=== PATIENT | male | born 1990 | race Caucasian/White ===

== ENCOUNTER 2023-07-21 14:03 | Emergency (ER) | payer MEDICARE ==
[2023-07-21] MEDS ORDERED: Piperacillin/Tazobactam 4.5 GM VIAL ONE (16:25)
[2023-07-21 16:48] LABS: Hematocrit 36.4 % (42.0-52.0); Mean Corpuscular Hemoglobin 28.3 pg (27.0-31.0); Mean Corpuscular Volume 85.8 fl (78.0-98.0); Mean Platelet Volume 8.6 fL (7.4-10.4); Platelet Count 345 10x3/uL (130-400); RBC Distribution Width 17.3 % (11.5-14.5); Red Blood Cell (RBC) Count 4.24 mill/uL (4.70-6.10); White Blood Cell (WBC) Count 49.3 10x3/uL (4.8-10.8)
[2023-07-21 16:49] LABS: Delete Auto Diff?? YES; Manual Diff?? YES
[2023-07-21 17:12] LABS: ALT (SGPT) 11 U/L (8-55); AST (SGOT) 12 U/L (5-34); Albumin 2.9 g/dL (3.5-5.0); Alkaline Phosphatase 118 U/L (40-110); Anion Gap 10 mmol/L (10-20); BUN (Urea Nitrogen) 17 mg/dL (8.9-20.6); Bilirubin, Total 0.4 mg/dL (0.2-1.2); Calc. Creatinine Clearance 0 mL/min (70-130); Calcium 8.9 mg/dL (7.8-10.44); Carbon Dioxide 30 mmol/L (22-29); Chloride 92 mmol/L (98-107); Estimated GFR 126; Globulin 3.8 g/dL (2.4-3.5); Glucose 88 mg/dL (70-105); Potassium 4.4 mmol/L (3.5-5.1); Protein, Total 6.7 g/dL (6.0-8.3); Sodium 128 mmol/L (136-145)
[2023-07-21 17:15] LABS: Anisocytosis SLIGHT = 6-15 cells HPF (0-5); Band 31 % (5-11); CellaVision Operator ID LAB.MJL; Lymphocytes 1 % (21-51); Metamyelocyte 2 % (0-0); Monocytes 1 % (0-10); Neutrophil 65 % (42-75); Platelet Adequacy Comment Platelets Normal; Polychromasia MODERATE = 3-4 cells HPF (0-2); Reactive Lymphocytes 1 % (0-10); Total Cell Count 121
[2023-07-21] MEDS ORDERED: LORazepam 2 MG/ML SYR.(CARPUJECT) ONE (18:52)
== END 2023-07-21 23:35 | disposition short-term general hospital (02) ==
LOC: ERS 14:03
DX: R18.8 Other ascites (principal); K66.8 Other specified disorders of peritoneum; D64.9 Anemia, unspecified; G10 Huntington's disease; Z93.1 Gastrostomy status
CPT/HCPCS: 74176; 80053 ×2; 83605; 85025 ×2; 87040; J2060; 96361; 96365; 96375; J2543

== ENCOUNTER 2023-09-06 17:15 | Emergency (ER) | payer MEDICARE ==
[2023-09-06 18:23] LABS: #Eosinphils 0.8 thou/uL (0.0-0.7); #Neutrophils 5.2 thou/uL (1.40-6.50); %Basophils 0.4 % (0.0-1.0); %Eosinophils 8.3 % (0.0-10.0); %Lymphocytes 22.7 % (21.0-51.0); %Monocytes 10.8 % (0.0-10.0); %Neutrophils 56.5 % (42.0-75.0); Hematocrit 29.8 % (42.0-52.0); Hemoglobin 9.2 g/dL (14.0-18.0); Mean Corpuscular HGB CONC 30.9 g/dL (32.0-36.0); Mean Corpuscular Hemoglobin 28.8 pg (27.0-31.0); Mean Corpuscular Volume 93.4 fl (78.0-98.0); Mean Platelet Volume 9.2 fL (7.4-10.4); Platelet Count 330 10x3/uL (130-400); RBC Distribution Width 14.8 % (11.5-14.5); Red Blood Cell (RBC) Count 3.19 mill/uL (4.70-6.10); White Blood Cell (WBC) Count 9.2 10x3/uL (4.8-10.8)
[2023-09-06 18:48] LABS: ALT (SGPT) 25 U/L (8-55); AST (SGOT) 19 U/L (5-34); Albumin 3.3 g/dL (3.5-5.0); Alkaline Phosphatase 175 U/L (40-110); Anion Gap 13 mmol/L (10-20); BUN (Urea Nitrogen) 13 mg/dL (8.9-20.6); Bilirubin, Total Less than 0.2 mg/dL (0.2-1.2); Calc. Creatinine Clearance 0 mL/min (70-130); Calcium 8.7 mg/dL (7.8-10.44); Carbon Dioxide 26 mmol/L (22-29); Chloride 102 mmol/L (98-107); Estimated GFR 132; Globulin 3.4 g/dL (2.4-3.5); Glucose 91 mg/dL (70-105); Potassium 4.4 mmol/L (3.5-5.1); Protein, Total 6.7 g/dL (6.0-8.3); Sodium 137 mmol/L (136-145)
[2023-09-06] MEDS ORDERED: Lidocaine 1% PF 5 ML VIAL ONE (20:19)
== END 2023-09-06 21:11 ==
LOC: ERS 17:15
DX: Z43.1 Encounter for attention to gastrostomy (principal)
CPT/HCPCS: 36415; 74177; 80053; 85025

== ENCOUNTER 2023-11-14 20:27 | Emergency (ER) | payer MEDICARE, MEDICAID | END 2023-11-14 23:13 | disposition home or self-care (01) | LOC: ERS 20:27 | DX: Z43.1 Encounter for attention to gastrostomy (principal) | CPT/HCPCS: 74018 ==

== ENCOUNTER 2024-04-07 12:38 | Outpatient (CLI) | payer MEDICARE, MEDICAID ==
[2024-04-07] MEDS ORDERED: Sterile Water 0 ML ONE (12:49)
[2024-04-07] MEDS ORDERED: MD-Gastroview 120 ML BOT ONE (12:50)
[2024-04-07] MEDS ORDERED: Lidocaine 2% 6 ML (Jelly) SYR ONE (12:50)
[2024-04-07] MEDS ORDERED: Sodium Chloride 0.9% 500 ML ONE (12:56)
== END 2024-04-07 12:39 | disposition home or self-care (01) ==
LOC: SPEC 12:38
PROVIDERS: ATTEND Family Medicine
DX: T85.528A Displacement of other gastrointestinal prosthetic devices, implants and grafts, initial encounter (principal)
CPT/HCPCS: 49451; C1769; J7030; Q9963

== ENCOUNTER 2024-04-08 04:31 | Inpatient (IN) | payer MEDICARE, MEDICAID ==
[2024-04-08] MEDS ORDERED: Etomidate 40 MG (20 mL) VIAL ONE (04:38)
[2024-04-08] MEDS ORDERED: Rocuronium Bromide 10 MG/ML (10ML VIAL) ONE (04:38)
[2024-04-08 04:59] LABS: #Basophils 0.08 10x3/uL (0.0-0.2); #Eosinphils Less than 0.03 10x3/uL (0.0-0.7); %Basophils 0.5 % (0.0-1.0); %Eosinophils 0.1 % (0.0-10.0); %Lymphocytes 11.1 % (21.0-51.0); %Monocytes 6.5 % (0.0-10.0); %Neutrophils 81.3 % (42.0-75.0); Hematocrit 49.2 % (42.0-52.0); Hemoglobin 16.6 g/dL (14.0-18.0); Mean Corpuscular HGB CONC 33.7 g/dL (32.0-36.0); Mean Corpuscular Hemoglobin 29.2 pg (27.0-31.0); Mean Corpuscular Volume 86.6 fL (78.0-98.0); Mean Platelet Volume 11.2 fL (7.4-10.4); Platelet Count 278 10x3/uL (130-400); RBC Distribution Width 13.1 % (11.5-14.5); Red Blood Cell (RBC) Count 5.68 mill/uL (4.70-6.10)
[2024-04-08 05:06] LABS: Actual Bicarbonate (HCO3a) 25.6 mEq/L (22-28); Analyzer IN Cardio ER; Base Excess (BEa) 0.4 mEq/L (-2.0 to +3.0); CO2 Tension 43.4 mmHg (35.0-45.0); Calcium, Ionized (arterial) 1.13 mmol/L (1.12-1.30); Carboxyhemoglobin (COHb) 0.3 gm% (0.0-3.0); Hematocrit-ABG 44 % (42.0-52.0); Hemoglobin (Hb) 14.8 g/dL (14.0-18.0); O2 Tension (PaO2), arterial 351.8 mmHg (80.0-100.0); pH, Arterial 7.389 (7.35-7.45)
[2024-04-08 05:14] LABS: Puncture Site RBA
[2024-04-08] MEDS ORDERED: fentaNYL 50 mcg/mL 1 mL Vial ONE (05:18)
[2024-04-08 05:31] LABS: Bilirubin Negative (Negative); CAUTI Indications for Culture Fever or rigors; Clarity Turbid (Clear); Glucose, Urine (Dipstick) Normal (Negative); Ketone, Urine Trace mg/dL (Negative); Leukocyte Negative Leu/uL (Negative); Nitrite Negative (Negative); Protein, Urine (Dipstick) 100 mg/dL (Neg-Trace); Specific Gravity, Urine 1.042 (1.002-1.036); Squamous Epithelial None Seen HPF (0-3); Urobilinogen 3 mg/dL (Less than 2); pH, Urine 5.5 (5.0-9.0)
[2024-04-08 05:33] LABS: Bacteria/HPF Rare-Few HPF (None Seen); Blood, Urine Trace (Negative)
[2024-04-08 05:35] LABS: Urine Culture Reflex No No
[2024-04-08] MEDS ORDERED: Acetaminophen 500 MG TAB ONE (05:37)
[2024-04-08] MEDS ORDERED: Cefepime 2 GM VIAL ONE (05:37)
[2024-04-08] MEDS ORDERED: Sodium Chloride 0.9% 100 ML ONE (05:37)
[2024-04-08] MEDS ORDERED: Propofol 1,000 MG/100 ML VIAL IV ONE (05:43)
[2024-04-08 05:55] LABS: ALT (SGPT) 104 U/L (8-55); AST (SGOT) 67 U/L (5-34); Albumin 3.9 g/dL (3.5-5.0); Alkaline Phosphatase 219 U/L (40-110); Anion Gap 17 mmol/L (10-20); BUN (Urea Nitrogen) 39 mg/dL (8.9-20.6); Bilirubin, Total 0.4 mg/dL (0.2-1.2); Calc. Creatinine Clearance 0 mL/min (70-130); Calcium 9.9 mg/dL (7.8-10.44); Carbon Dioxide 27 mmol/L (22-29); Chloride 109 mmol/L (98-107); Estimated GFR 97; Glucose 171 mg/dL (70-105); Potassium 3.8 mmol/L (3.5-5.1); Protein, Total 8.9 g/dL (6.0-8.3); Sodium 149 mmol/L (136-145)
[2024-04-08] MEDS ORDERED: LORazepam 2 MG/ML SYR.(CARPUJECT) ONE (05:58)
[2024-04-08] MEDS ORDERED: LevoFLOXacin 750 mg/D5W 150 ml Premix Bag ONE (06:15)
[2024-04-08] MEDS ORDERED: Dextrose 50% Abboject 50 ML SYRINGE SLOW IVP PRN (06:17)
[2024-04-08] MEDS ORDERED: Dextrose 5% in Water 1,000 ML IV PRN (06:17)
[2024-04-08] MEDS ORDERED: Glucagon 1 MG/ML KIT IM PRN (06:17)
[2024-04-08] MEDS ORDERED: Propofol BOLUS 1,000 MG/100 ML VIAL IV PRN (06:30)
[2024-04-08] MEDS ORDERED: Morphine 2 MG/ML VIAL SLOW IVP PRN (06:30)
[2024-04-08] MEDS ORDERED: DISCONTINUE PREVIOUS NARCOTIC PAIN MEDICATIONS AND BENZODIAZEPINES FS SCH (06:30)
[2024-04-08] MEDS ORDERED: Fentanyl BOLUS 250 ML IVPB PRN (06:30)
[2024-04-08 07:11] LABS: Influenza A by NAA Not Detected (NotDetected); Influenza B by NAA Not Detected (NotDetected); SARS-CoV-2 NAA Rapid Test Not Detected (NotDetected)
[2024-04-08] MEDS: Lactated Ringer's 1,000 ML IV SCH (08:55)
[2024-04-08] MEDS: Ventilator Sedation Protocol 1 EACH FS ONE (08:55)
[2024-04-08] MEDS: Electrolyte Replacement Protocol 1 EACH FS ONE (08:55)
[2024-04-08] MEDS: Vancomycin (BATCH) 1.75 GM in Premix 1 BAG IVPB SCH (08:55)
[2024-04-08 08:56] VITALS: BMI 22.4
[2024-04-08] MEDS: Piperacillin/Tazobactam 3.375 GM in Sodium Chloride 0.9% 100 ML IVPB SCH ×2 (10:23→13:49)
[2024-04-08] MEDS: Enoxaparin 40 MG (0.4 mL) SYRINGE SC SCH (10:23)
[2024-04-08] MEDS: Famotidine/PF 20 mg/2ml Vial SLOW IVP SCH (10:23)
[2024-04-08] MEDS: Lorazepam 2 MG/ML VIAL SLOW IVP PRN (11:06)
[2024-04-08] MEDS ORDERED: Piperacillin/Tazobactam 3.375 GM in Sodium Chloride 0.9% 100 ML IVPB SCH (12:00)
[2024-04-08] MEDS: Propofol 1,000 MG/100 ML VIAL IV PRN (14:49)
[2024-04-08] MEDS: Fentanyl CADD 100 ML IV SCH (16:57)
[2024-04-08] MEDS ORDERED: Vancomycin 1.25 GM in Sodium Chloride 0.9% 250 ML 250 ML IVPB SCH (18:00)
[2024-04-08] MEDS ORDERED: DEUTETRABENAZINE 12 MG PO SCH (21:00)
[2024-04-08] MEDS: Vancomycin (BATCH) 1.25 GM in Premix 1 BAG IVPB SCH (21:00)
[2024-04-08] MEDS: Acetaminophen 325 MG TAB PO PRN (21:37)
[2024-04-09 04:51] LABS: #Basophils 0.07 10x3/uL (0.0-0.2); %Basophils 0.3 % (0.0-1.0); %Eosinophils 3.3 % (0.0-10.0); %Lymphocytes 8.5 % (21.0-51.0); %Monocytes 7.8 % (0.0-10.0); %Neutrophils 79.5 % (42.0-75.0); Hematocrit 38.5 % (42.0-52.0); Hemoglobin 12.7 g/dL (14.0-18.0); Mean Corpuscular Hemoglobin 29.6 pg (27.0-31.0); Mean Corpuscular Volume 89.7 fL (78.0-98.0); Mean Platelet Volume 11.2 fL (7.4-10.4); Platelet Count 85 10x3/uL (130-400); RBC Distribution Width 13.7 % (11.5-14.5); Red Blood Cell (RBC) Count 4.29 mill/uL (4.70-6.10)
[2024-04-09 04:59] LABS: Vancomycin, Random 16.5 ug/mL (See Comment)
[2024-04-09 05:07] LABS: ALT (SGPT) 64 U/L (8-55); AST (SGOT) 44 U/L (5-34); Albumin 2.5 g/dL (3.5-5.0); Alkaline Phosphatase 152 U/L (40-110); Anion Gap 15 mmol/L (10-20); BUN (Urea Nitrogen) 14 mg/dL (8.9-20.6); Bilirubin, Total 0.5 mg/dL (0.2-1.2); Calc. Creatinine Clearance 168 mL/min (70-130); Calcium 8.2 mg/dL (7.8-10.44); Carbon Dioxide 19 mmol/L (22-29); Chloride 113 mmol/L (98-107); Estimated GFR 127; Globulin 3.5 g/dL (2.4-3.5); Glucose 98 mg/dL (70-105); Potassium 4.4 mmol/L (3.5-5.1); Sodium 143 mmol/L (136-145)
[2024-04-09] MEDS: levETIRAcetam 500 MG TAB PO SCH (08:28)
[2024-04-09] MEDS: Pantoprazole 40 MG VIAL IVP SCH (08:29)
[2024-04-09] MEDS: AUSTEDO 9 MG PER TUBE SCH (08:30)
[2024-04-09] MEDS: Baclofen 10 MG TAB PO SCH (20:26)
[2024-04-09] MEDS: Albumin 25% 25 GM (100 mL) BOT IVPB SCH (22:19)
[2024-04-09] MEDS: Lactated Ringer's 500 ML IV SCH (22:20)
[2024-04-10 05:41] LABS: #Basophils 0.07 10x3/uL (0.0-0.2); %Basophils 0.4 % (0.0-1.0); %Lymphocytes 9.6 % (21.0-51.0); %Monocytes 9.2 % (0.0-10.0); Hematocrit 36.3 % (42.0-52.0); Hemoglobin 11.5 g/dL (14.0-18.0); Mean Corpuscular HGB CONC 31.7 g/dL (32.0-36.0); Mean Corpuscular Hemoglobin 29.4 pg (27.0-31.0); Mean Corpuscular Volume 92.8 fL (78.0-98.0); Mean Platelet Volume 10.4 fL (7.4-10.4); Platelet Count 184 10x3/uL (130-400); RBC Distribution Width 13.7 % (11.5-14.5); Red Blood Cell (RBC) Count 3.91 mill/uL (4.70-6.10)
[2024-04-10 06:01] LABS: ALT (SGPT) 48 U/L (8-55); AST (SGOT) 31 U/L (5-34); Albumin 2.5 g/dL (3.5-5.0); Alkaline Phosphatase 127 U/L (40-110); Anion Gap 13 mmol/L (10-20); BUN (Urea Nitrogen) 10 mg/dL (8.9-20.6); Bilirubin, Total 0.4 mg/dL (0.2-1.2); Calc. Creatinine Clearance 179 mL/min (70-130); Calcium 8.5 mg/dL (7.8-10.44); Carbon Dioxide 22 mmol/L (22-29); Chloride 112 mmol/L (98-107); Estimated GFR 130; Globulin 3.1 g/dL (2.4-3.5); Glucose 112 mg/dL (70-105); Potassium 3.5 mmol/L (3.5-5.1); Protein, Total 5.6 g/dL (6.0-8.3); Sodium 143 mmol/L (136-145)
[2024-04-10] MEDS: Artificial Tear Ophth Sol 15 ML BOT EA EYE PRN (17:06)
[2024-04-11 10:15] LABS: #Basophils Less than 0.03 10x3/uL (0.0-0.2); %Basophils 0.2 % (0.0-1.0); %Eosinophils 4.5 % (0.0-10.0); %Lymphocytes 6.7 % (21.0-51.0); %Monocytes 6.9 % (0.0-10.0); %Neutrophils 80.6 % (42.0-75.0); Hematocrit 31.5 % (42.0-52.0); Hemoglobin 10.3 g/dL (14.0-18.0); Mean Corpuscular HGB CONC 32.7 g/dL (32.0-36.0); Mean Corpuscular Hemoglobin 29.5 pg (27.0-31.0); Mean Corpuscular Volume 90.3 fL (78.0-98.0); Mean Platelet Volume 10.9 fL (7.4-10.4); Platelet Count 155 10x3/uL (130-400); RBC Distribution Width 13.7 % (11.5-14.5); Red Blood Cell (RBC) Count 3.49 mill/uL (4.70-6.10)
[2024-04-11] MEDS: Lansoprazole 30 MG/10 ML UDCUP PER TUBE SCH (10:28)
[2024-04-11 10:35] LABS: ALT (SGPT) 38 U/L (8-55); AST (SGOT) 22 U/L (5-34); Albumin 2.2 g/dL (3.5-5.0); Alkaline Phosphatase 118 U/L (40-110); Anion Gap 13 mmol/L (10-20); BUN (Urea Nitrogen) 9 mg/dL (8.9-20.6); Bilirubin, Total 0.3 mg/dL (0.2-1.2); Calc. Creatinine Clearance 174 mL/min (70-130); Calcium 8.2 mg/dL (7.8-10.44); Carbon Dioxide 24 mmol/L (22-29); Chloride 111 mmol/L (98-107); Estimated GFR 128; Globulin 3.3 g/dL (2.4-3.5); Glucose 128 mg/dL (70-105); Potassium 3.3 mmol/L (3.5-5.1); Protein, Total 5.5 g/dL (6.0-8.3); Sodium 145 mmol/L (136-145)
[2024-04-11] MEDS ORDERED: Electrolyte Replacement Protocol 1 EACH FS SCH (10:45)
[2024-04-11] MEDS: Potassium Chloride 20 MEQ TAB PO SCH (12:55)
[2024-04-11] MEDS: Lactated Ringer's 1,000 ML IV SCH (13:37)
[2024-04-11] MEDS: methylPREDNISolone Sod Succ 40 MG VIAL IVP SCH ×2 (13:37→20:56)
[2024-04-11] MEDS: Potassium Bicarbonate/Cit Ac 20 MEQ TAB PER TUBE SCH (13:37)
[2024-04-11] MEDS: Lorazepam 1 MG TAB PO PRN (13:38)
[2024-04-11] MEDS: Gabapentin 300 MG CAP PO SCH (13:38)
[2024-04-11] MEDS: Baclofen 10 MG TAB PO SCH (20:56)
[2024-04-11] MEDS: Senokot S 8.6-50 MG TAB PO SCH (20:56)
[2024-04-11 22:40] LABS: Potassium 4.6 mmol/L (3.5-5.1)
[2024-04-12 04:39] LABS: #Basophils Less than 0.03 10x3/uL (0.0-0.2); #Eosinphils Less than 0.03 10x3/uL (0.0-0.7); %Basophils 0.1 % (0.0-1.0); %Eosinophils 0.1 % (0.0-10.0); %Lymphocytes 4.1 % (21.0-51.0); %Monocytes 1.2 % (0.0-10.0); %Neutrophils 93.2 % (42.0-75.0); Hemoglobin 10.5 g/dL (14.0-18.0); Mean Corpuscular HGB CONC 31.8 g/dL (32.0-36.0); Mean Corpuscular Hemoglobin 28.8 pg (27.0-31.0); Mean Corpuscular Volume 90.7 fL (78.0-98.0); Mean Platelet Volume 11.6 fL (7.4-10.4); Platelet Count 175 10x3/uL (130-400); RBC Distribution Width 13.5 % (11.5-14.5); Red Blood Cell (RBC) Count 3.64 mill/uL (4.70-6.10)
[2024-04-12 05:00] LABS: Anion Gap 16 mmol/L (10-20); BUN (Urea Nitrogen) 10 mg/dL (8.9-20.6); Calc. Creatinine Clearance 186 mL/min (70-130); Calcium 8.8 mg/dL (7.8-10.44); Carbon Dioxide 27 mmol/L (22-29); Chloride 108 mmol/L (98-107); Estimated GFR 131; Glucose 130 mg/dL (70-105); Potassium 4.6 mmol/L (3.5-5.1); Sodium 146 mmol/L (136-145)
[2024-04-12] MEDS ORDERED: Baclofen 10 MG TAB PO SCH ×2 (09:00→14:00)
[2024-04-12] MEDS: Baclofen 10 MG TAB PO SCH ×3 (09:06→21:00)
[2024-04-12] MEDS: DULoxetine 30 MG CAP PO SCH (09:07)
[2024-04-12] MEDS: HYDROcodone/Acetaminophen 10/325 mg Tablet PO PRN (11:09)
[2024-04-12] MEDS: Diazepam 5 MG TAB PO SCH (12:28)
[2024-04-12] MEDS ORDERED: GASTROGRAFIN 30 ML BOT ONE (13:18)
[2024-04-12] MEDS: Haloperidol Lactate 5 MG/ML VIAL SLOW IVP SCH (20:56)
[2024-04-13 05:07] LABS: #Basophils 0.07 10x3/uL (0.0-0.2); #Eosinphils Less than 0.03 10x3/uL (0.0-0.7); %Basophils 0.5 % (0.0-1.0); %Lymphocytes 6.6 % (21.0-51.0); %Monocytes 3.5 % (0.0-10.0); %Neutrophils 87.4 % (42.0-75.0); Hemoglobin 10.3 g/dL (14.0-18.0); Mean Corpuscular HGB CONC 32.2 g/dL (32.0-36.0); Mean Corpuscular Hemoglobin 28.6 pg (27.0-31.0); Mean Corpuscular Volume 88.9 fL (78.0-98.0); Mean Platelet Volume 11.4 fL (7.4-10.4); Platelet Count 179 10x3/uL (130-400); RBC Distribution Width 13.5 % (11.5-14.5)
[2024-04-13 05:18] LABS: Anion Gap 13 mmol/L (10-20); BUN (Urea Nitrogen) 15 mg/dL (8.9-20.6); Calc. Creatinine Clearance 214 mL/min (70-130); Calcium 8.4 mg/dL (7.8-10.44); Carbon Dioxide 28 mmol/L (22-29); Chloride 106 mmol/L (98-107); Estimated GFR 132; Glucose 124 mg/dL (70-105); Potassium 4.2 mmol/L (3.5-5.1); Sodium 143 mmol/L (136-145)
[2024-04-13] MEDS: Scopolamine 1 mg/72 hour Patch TD SCH (05:36)
[2024-04-13 07:19] LABS: Calcium, Ionized (arterial) 1.16 mmol/L (1.12-1.30); Carboxyhemoglobin (COHb) 0.2 gm% (0.0-3.0); Hematocrit-ABG 32 % (42.0-52.0); Hemoglobin (Hb) 10.9 g/dL (14.0-18.0); O2 Tension (PaO2), arterial 80.5 mmHg (80.0-100.0); Potassium - ABG Lab 4.02 mmol/L (3.70-5.30); pH, Arterial 7.432 (7.35-7.45)
[2024-04-13 07:21] LABS: Puncture Site RBA
[2024-04-13] MEDS ORDERED: GASTROGRAFIN 30 ML BOT ONE (07:52)
[2024-04-13] MEDS: Benztropine 1 MG TAB PER TUBE SCH (08:34)
[2024-04-13] MEDS: Lorazepam 2 MG/ML VIAL SLOW IVP SCH (11:20)
[2024-04-13] MEDS: fentaNYL 75 mcg/hour Patch TD SCH (11:46)
[2024-04-13] MEDS: risperiDONE 0.25 MG TAB PO SCH (11:46)
[2024-04-13] MEDS: Pantoprazole 40 MG VIAL IVP SCH (11:47)
[2024-04-13] MEDS ORDERED: Dexmedetomidine In 0.9 % NaCl 100 ML IVPB SCH (12:00)
[2024-04-13] MEDS ORDERED: Levalbuterol HCl 0.63 MG/3 ML NEB NEB PRN (12:01)
[2024-04-13] MEDS: DC Sedation Protocol FS ONE (12:05)
[2024-04-13] MEDS: Morphine 4 MG/ML VIAL SLOW IVP SCH (12:14)
[2024-04-13] MEDS: Ipratropium/Albuterol 3 ML NEB NEB PRN (12:30)
[2024-04-13] MEDS: Glycopyrrolate 0.4 MG/ 2 ML VIAL SLOW IVP PRN (13:21)
[2024-04-13] MEDS: Haloperidol Lactate 5 MG/ML VIAL SLOW IVP SCH (13:57)
[2024-04-13] MEDS: Lorazepam 2 MG/ML VIAL SLOW IVP PRN (14:56)
[2024-04-13] MEDS: diphenhydrAMINE 50 MG/ML VIAL IVP SCH ×2 (15:53→22:49)
[2024-04-13] MEDS: HYDROcodone/Acetaminophen 10/325 mg Tablet PO SCH (16:49)
[2024-04-13] MEDS: Dexmedetomidine In 0.9 % NaCl 100 ML IVPB SCH (16:50)
[2024-04-13] MEDS: diphenhydrAMINE 50 MG/ML VIAL IVP PRN (19:12)
[2024-04-13] MEDS: Lorazepam 1 MG TAB PO PRN (19:23)
[2024-04-13] MEDS: guaiFENesin ER 600 MG TAB PO SCH (20:12)
[2024-04-14] MEDS: Morphine 4 MG/ML VIAL SLOW IVP SCH (00:32)
[2024-04-14] MEDS: diphenhydrAMINE 50 MG/ML VIAL IVP SCH (01:00)
[2024-04-14] MEDS: Haloperidol Lactate 5 MG/ML VIAL IM SCH (01:00)
[2024-04-14] MEDS: Sodium Chloride 0.9% 1,000 ML IV SCH (01:29)
[2024-04-14 02:35] LABS: Actual Bicarbonate (HCO3a) 28.6 mEq/L (22-28); Base Excess (BEa) 1.7 mEq/L (-2.0 to +3.0); CO2 Tension 55.5 mmHg (35.0-45.0); Calcium, Ionized (arterial) 1.12 mmol/L (1.12-1.30); Carboxyhemoglobin (COHb) 0.5 gm% (0.0-3.0); Hematocrit-ABG 35 % (42.0-52.0); Hemoglobin (Hb) 11.9 g/dL (14.0-18.0); O2 Tension (PaO2), arterial 63.8 mmHg (80.0-100.0); Potassium - ABG Lab 3.81 mmol/L (3.70-5.30)
[2024-04-14 02:36] LABS: ALV-art Gradient 237.585 mmHg (0-20); Puncture Site RR
[2024-04-14] MEDS: Benztropine 1 MG TAB PO SCH (02:55)
[2024-04-14 06:38] LABS: Hematocrit 33.8 % (42.0-52.0); Hemoglobin 11.1 g/dL (14.0-18.0); Mean Corpuscular HGB CONC 32.8 g/dL (32.0-36.0); Mean Corpuscular Hemoglobin 29.4 pg (27.0-31.0); Mean Corpuscular Volume 89.7 fL (78.0-98.0); Mean Platelet Volume 9.6 fL (7.4-10.4); Platelet Count 277 10x3/uL (130-400); RBC Distribution Width 13.1 % (11.5-14.5); Red Blood Cell (RBC) Count 3.77 mill/uL (4.70-6.10)
[2024-04-14 06:52] LABS: Anion Gap 13 mmol/L (10-20); BUN (Urea Nitrogen) 15 mg/dL (8.9-20.6); Calc. Creatinine Clearance 203 mL/min (70-130); Calcium 8.3 mg/dL (7.8-10.44); Carbon Dioxide 30 mmol/L (22-29); Chloride 102 mmol/L (98-107); Estimated GFR 130; Glucose 97 mg/dL (70-105); Potassium 3.8 mmol/L (3.5-5.1); Sodium 141 mmol/L (136-145)
[2024-04-14 07:02] LABS: Band 7 % (5-11); Hypochromia SLIGHT = 6-15 cells HPF (0-5); Lymphocytes 5 % (21-51); Monocytes 7 % (0-10); Neutrophil 81 % (42-75); Platelet Adequacy Comment Platelets Normal; Polychromasia SLIGHT = 2-3 cells HPF (0-2)
[2024-04-14] MEDS ORDERED: Vecuronium 10 MG VIAL IVP PRN (07:39)
[2024-04-14] MEDS ORDERED: Propofol BOLUS 1,000 MG/100 ML VIAL IV PRN (07:45)
[2024-04-14] MEDS: Etomidate 40 MG (20 mL) VIAL IVP SCH (07:45)
[2024-04-14] MEDS ORDERED: Ventilator Sedation Protocol 1 EACH FS SCH (07:45)
[2024-04-14] MEDS ORDERED: Fentanyl BOLUS 250 ML IVPB PRN (07:45)
[2024-04-14] MEDS: Rocuronium Bromide 10 MG/ML (10ML VIAL) IVP SCH (07:48)
[2024-04-14] MEDS: Propofol 1,000 MG/100 ML VIAL IV PRN (07:50)
[2024-04-14] MEDS: Fentanyl CADD 100 ML IV SCH (07:50)
[2024-04-14] MEDS ORDERED: risperiDONE 0.25 MG TAB PO SCH (09:00)
[2024-04-14] MEDS ORDERED: Benztropine 1 MG TAB PO SCH (09:00)
[2024-04-14 09:02] LABS: Actual Bicarbonate (HCO3a) 28.1 mEq/L (22-28); Base Excess (BEa) 2.2 mEq/L (-2.0 to +3.0); CO2 Tension 49.7 mmHg (35.0-45.0); Calcium, Ionized (arterial) 1.09 mmol/L (1.12-1.30); Carboxyhemoglobin (COHb) 0.1 gm% (0.0-3.0); Hematocrit-ABG 32 % (42.0-52.0); O2 Tension (PaO2), arterial 79.4 mmHg (80.0-100.0); Potassium - ABG Lab 3.37 mmol/L (3.70-5.30)
[2024-04-14 09:03] LABS: ALV-art Gradient 214.975 mmHg (0-20); Puncture Site RRA
[2024-04-14] MEDS: Ventilator Sedation Protocol 1 EACH FS ONE (10:42)
[2024-04-14] MEDS: Lorazepam 2 MG/ML VIAL SLOW IVP PRN (13:00)
[2024-04-14] MEDS ORDERED: Midazolam In 0.9 % NaCl/PF 100 ML IVPB SCH (14:30)
[2024-04-15 04:47] LABS: #Basophils Less than 0.03 10x3/uL (0.0-0.2); #Eosinphils Less than 0.03 10x3/uL (0.0-0.7); %Basophils 0.1 % (0.0-1.0); %Lymphocytes 6.2 % (21.0-51.0); %Monocytes 6.3 % (0.0-10.0); %Neutrophils 85.9 % (42.0-75.0); Hematocrit 29.8 % (42.0-52.0); Hemoglobin 9.7 g/dL (14.0-18.0); Mean Corpuscular HGB CONC 32.6 g/dL (32.0-36.0); Mean Corpuscular Hemoglobin 28.8 pg (27.0-31.0); Mean Corpuscular Volume 88.4 fL (78.0-98.0); Platelet Count 220 10x3/uL (130-400); RBC Distribution Width 13.1 % (11.5-14.5); Red Blood Cell (RBC) Count 3.37 mill/uL (4.70-6.10)
[2024-04-15 05:12] LABS: Anion Gap 10 mmol/L (10-20); BUN (Urea Nitrogen) 13 mg/dL (8.9-20.6); Calc. Creatinine Clearance 212 mL/min (70-130); Carbon Dioxide 29 mmol/L (22-29); Chloride 103 mmol/L (98-107); Estimated GFR 132; Glucose 124 mg/dL (70-105); Potassium 3.6 mmol/L (3.5-5.1); Sodium 138 mmol/L (136-145)
[2024-04-15 06:42] LABS: Actual Bicarbonate (HCO3a) 29.6 mEq/L (22-28); Base Excess (BEa) 5.4 mEq/L (-2.0 to +3.0); CO2 Tension 41.6 mmHg (35.0-45.0); Calcium, Ionized (arterial) 1.11 mmol/L (1.12-1.30); Carboxyhemoglobin (COHb) 0.1 gm% (0.0-3.0); Hematocrit-ABG 31 % (42.0-52.0); Hemoglobin (Hb) 10.5 g/dL (14.0-18.0); O2 Tension (PaO2), arterial 85.7 mmHg (80.0-100.0); Potassium - ABG Lab 3.58 mmol/L (3.70-5.30)
[2024-04-15 06:45] LABS: Puncture Site LRA
[2024-04-15] MEDS: metroNIDAZOLE 500 MG in Premix 1 BAG IVPB SCH (12:15)
[2024-04-15] MEDS: Cefepime 2 GM in Sodium Chloride 0.9% 100 ML IVPB SCH (13:14)
[2024-04-16 04:08] LABS: #Basophils Less than 0.03 10x3/uL (0.0-0.2); %Basophils 0.2 % (0.0-1.0); %Eosinophils 5.5 % (0.0-10.0); %Lymphocytes 12.8 % (21.0-51.0); %Monocytes 7.8 % (0.0-10.0); %Neutrophils 71.9 % (42.0-75.0); Hematocrit 36.8 % (42.0-52.0); Hemoglobin 11.9 g/dL (14.0-18.0); Mean Corpuscular HGB CONC 32.3 g/dL (32.0-36.0); Mean Corpuscular Hemoglobin 28.6 pg (27.0-31.0); Mean Corpuscular Volume 88.5 fL (78.0-98.0); Mean Platelet Volume 9.3 fL (7.4-10.4); Platelet Count 188 10x3/uL (130-400); RBC Distribution Width 13.4 % (11.5-14.5); Red Blood Cell (RBC) Count 4.16 mill/uL (4.70-6.10)
[2024-04-16 04:41] LABS: Anion Gap 10 mmol/L (10-20); BUN (Urea Nitrogen) 12 mg/dL (8.9-20.6); Calc. Creatinine Clearance 236 mL/min (70-130); Calcium 7.9 mg/dL (7.8-10.44); Carbon Dioxide 29 mmol/L (22-29); Chloride 105 mmol/L (98-107); Estimated GFR 137; Glucose 105 mg/dL (70-105); Potassium 3.2 mmol/L (3.5-5.1); Sodium 141 mmol/L (136-145)
[2024-04-16] MEDS: DEUTETRABENAZINE 12 MG PER TUBE SCH (09:24)
[2024-04-16] MEDS ORDERED: Electrolyte Replacement Protocol FS PRN (10:45)
[2024-04-16] MEDS ORDERED: Electrolyte Replacement Protocol 1 EACH FS SCH (10:45)
[2024-04-16] MEDS: Potassium Bicarbonate/Cit Ac 20 MEQ TAB PER TUBE SCH (11:20)
[2024-04-16] MEDS: risperiDONE 0.25 MG TAB PO SCH (11:20)
[2024-04-16] MEDS: Fluconazole In NaCl,Iso-Osm 200 MG in Premix 1 BAG IVPB SCH (17:17)
[2024-04-16 17:21] LABS: Potassium 3.5 mmol/L (3.5-5.1)
[2024-04-16] MEDS: Potassium Chloride 20 MEQ in Premix 1 BAG IVPB SCH (21:10)
[2024-04-17 05:43] LABS: #Basophils Less than 0.03 10x3/uL (0.0-0.2); %Basophils 0.2 % (0.0-1.0); %Eosinophils 7.3 % (0.0-10.0); %Monocytes 6.2 % (0.0-10.0); %Neutrophils 67.7 % (42.0-75.0); Hematocrit 31.7 % (42.0-52.0); Hemoglobin 10.4 g/dL (14.0-18.0); Mean Corpuscular HGB CONC 32.8 g/dL (32.0-36.0); Mean Corpuscular Hemoglobin 29.3 pg (27.0-31.0); Mean Corpuscular Volume 89.3 fL (78.0-98.0); Mean Platelet Volume 10.5 fL (7.4-10.4); Platelet Count 202 10x3/uL (130-400); RBC Distribution Width 13.5 % (11.5-14.5); Red Blood Cell (RBC) Count 3.55 mill/uL (4.70-6.10)
[2024-04-17 06:18] LABS: Anion Gap 10 mmol/L (10-20); BUN (Urea Nitrogen) 11 mg/dL (8.9-20.6); Calc. Creatinine Clearance 238 mL/min (70-130); Calcium 8.1 mg/dL (7.8-10.44); Carbon Dioxide 29 mmol/L (22-29); Chloride 107 mmol/L (98-107); Estimated GFR 138; Glucose 88 mg/dL (70-105); Potassium 3.9 mmol/L (3.5-5.1); Sodium 142 mmol/L (136-145)
[2024-04-17] MEDS ORDERED: risperiDONE 0.25 MG TAB PO SCH (09:00)
[2024-04-17] MEDS: Fluconazole In NaCl,Iso-Osm 200 MG in Premix 1 BAG IVPB SCH (09:41)
[2024-04-17] MEDS: risperiDONE 1 MG TAB PO SCH (09:48)
[2024-04-17] MEDS: Bisacodyl 10 MG SUPP PR SCH (09:48)
[2024-04-18 07:12] LABS: #Basophils 0.04 10x3/uL (0.0-0.2); %Basophils 0.4 % (0.0-1.0); %Eosinophils 5.3 % (0.0-10.0); %Lymphocytes 15.5 % (21.0-51.0); %Monocytes 5.5 % (0.0-10.0); Hematocrit 32.2 % (42.0-52.0); Hemoglobin 10.3 g/dL (14.0-18.0); Mean Corpuscular Hemoglobin 28.5 pg (27.0-31.0); Mean Corpuscular Volume 89.2 fL (78.0-98.0); Mean Platelet Volume 10.6 fL (7.4-10.4); Platelet Count 183 10x3/uL (130-400); RBC Distribution Width 13.7 % (11.5-14.5); Red Blood Cell (RBC) Count 3.61 mill/uL (4.70-6.10)
[2024-04-18 08:04] LABS: Anion Gap 13 mmol/L (10-20); BUN (Urea Nitrogen) 12 mg/dL (8.9-20.6); Calc. Creatinine Clearance 240 mL/min (70-130); Calcium 8.1 mg/dL (7.8-10.44); Carbon Dioxide 26 mmol/L (22-29); Chloride 109 mmol/L (98-107); Estimated GFR 138; Glucose 98 mg/dL (70-105); Potassium 3.8 mmol/L (3.5-5.1); Sodium 144 mmol/L (136-145)
[2024-04-18] MEDS: Glycopyrrolate 0.4 MG/ 2 ML VIAL SLOW IVP SCH (15:15)
[2024-04-18] MEDS: Morphine 2 MG/ML VIAL SLOW IVP PRN (19:55)
[2024-04-19 04:51] LABS: #Basophils Less than 0.03 10x3/uL (0.0-0.2); %Basophils 0.2 % (0.0-1.0); %Eosinophils 3.7 % (0.0-10.0); %Monocytes 6.3 % (0.0-10.0); %Neutrophils 72.9 % (42.0-75.0); Hematocrit 28.4 % (42.0-52.0); Hemoglobin 9.3 g/dL (14.0-18.0); Mean Corpuscular HGB CONC 32.7 g/dL (32.0-36.0); Mean Corpuscular Hemoglobin 29.2 pg (27.0-31.0); Mean Platelet Volume 10.2 fL (7.4-10.4); Platelet Count 213 10x3/uL (130-400); RBC Distribution Width 13.6 % (11.5-14.5); Red Blood Cell (RBC) Count 3.19 mill/uL (4.70-6.10)
[2024-04-19 05:26] LABS: Anion Gap 13 mmol/L (10-20); BUN (Urea Nitrogen) 12 mg/dL (8.9-20.6); Calc. Creatinine Clearance 229 mL/min (70-130); Calcium 8.2 mg/dL (7.8-10.44); Carbon Dioxide 29 mmol/L (22-29); Chloride 106 mmol/L (98-107); Estimated GFR 137; Glucose 88 mg/dL (70-105); Potassium 3.9 mmol/L (3.5-5.1); Sodium 144 mmol/L (136-145)
[2024-04-20 06:37] LABS: #Basophils Less than 0.03 10x3/uL (0.0-0.2); %Basophils 0.3 % (0.0-1.0); %Eosinophils 4.2 % (0.0-10.0); %Lymphocytes 17.6 % (21.0-51.0); %Monocytes 7.7 % (0.0-10.0); Hematocrit 31.1 % (42.0-52.0); Hemoglobin 10.1 g/dL (14.0-18.0); Mean Corpuscular HGB CONC 32.5 g/dL (32.0-36.0); Mean Corpuscular Hemoglobin 28.8 pg (27.0-31.0); Mean Corpuscular Volume 88.6 fL (78.0-98.0); Mean Platelet Volume 10.8 fL (7.4-10.4); RBC Distribution Width 13.6 % (11.5-14.5); Red Blood Cell (RBC) Count 3.51 mill/uL (4.70-6.10)
[2024-04-20 06:51] LABS: Anion Gap 10 mmol/L (10-20); BUN (Urea Nitrogen) 12 mg/dL (8.9-20.6); Calc. Creatinine Clearance 222 mL/min (70-130); Calcium 8.6 mg/dL (7.8-10.44); Carbon Dioxide 28 mmol/L (22-29); Chloride 107 mmol/L (98-107); Estimated GFR 136; Glucose 86 mg/dL (70-105); Potassium 3.7 mmol/L (3.5-5.1); Sodium 141 mmol/L (136-145)
[2024-04-20 07:52] LABS: Platelet Count 213 10x3/uL (130-400)
[2024-04-20 08:00] LABS: Platelet Adequacy Comment Platelets Decreased; Polychromasia SLIGHT = 2-3 cells HPF (0-2)
[2024-04-20] MEDS: Fluconazole In NaCl,Iso-Osm 400 MG in Premix 1 BAG IVPB SCH (09:02)
[2024-04-20] MEDS ORDERED: Bupivacaine PF 0.5% 30 ML VIAL ONE (09:42)
[2024-04-20] MEDS ORDERED: EPINEPHrine 1 MG/ML VIAL ONE (09:42)
[2024-04-20] MEDS ORDERED: PROPOFOL 20 ML ONE ×2 (09:50→11:38)
[2024-04-20] MEDS ORDERED: fentaNYL PF 100 MCG/2 ML SYRINGE ONE (10:49)
[2024-04-20] MEDS ORDERED: Rocuronium Bromide 10 MG/ML (10ML VIAL) ONE (10:50)
[2024-04-20] MEDS ORDERED: CEFAZOLIN 1 GM VIAL ONE (11:00)
[2024-04-20] MEDS ORDERED: ePHEDrine Sulfate 50 MG/10 ML VIAL ONE (11:03)
[2024-04-20] MEDS: Diazepam 5 MG TAB PO SCH ×2 (21:15→21:20)
[2024-04-21 04:51] LABS: #Basophils 0.06 10x3/uL (0.0-0.2); %Basophils 0.5 % (0.0-1.0); %Eosinophils 2.3 % (0.0-10.0); %Lymphocytes 12.7 % (21.0-51.0); %Monocytes 6.6 % (0.0-10.0); %Neutrophils 76.4 % (42.0-75.0); Hematocrit 31.9 % (42.0-52.0); Hemoglobin 10.3 g/dL (14.0-18.0); Mean Corpuscular HGB CONC 32.3 g/dL (32.0-36.0); Mean Corpuscular Hemoglobin 28.4 pg (27.0-31.0); Mean Corpuscular Volume 87.9 fL (78.0-98.0); Mean Platelet Volume 9.8 fL (7.4-10.4); Platelet Count 233 10x3/uL (130-400); RBC Distribution Width 14.1 % (11.5-14.5); Red Blood Cell (RBC) Count 3.63 mill/uL (4.70-6.10)
[2024-04-21 05:23] LABS: Anion Gap 11 mmol/L (10-20); BUN (Urea Nitrogen) 11 mg/dL (8.9-20.6); Calc. Creatinine Clearance 201 mL/min (70-130); Calcium 8.7 mg/dL (7.8-10.44); Carbon Dioxide 27 mmol/L (22-29); Chloride 107 mmol/L (98-107); Estimated GFR 132; Glucose 92 mg/dL (70-105); Potassium 3.9 mmol/L (3.5-5.1); Sodium 141 mmol/L (136-145)
[2024-04-21] MEDS: fentaNYL 50 mcg/hour Patch TD SCH (10:29)
[2024-04-21] MEDS: Midazolam HCl 2 mg/2 ml Vial SLOW IVP SCH (12:39)
[2024-04-21] MEDS: Midazolam HCl 2 mg/2 ml Vial ONE (12:40)
[2024-04-21] MEDS: Lorazepam 2 MG/ML VIAL SLOW IVP PRN (13:40)
[2024-04-21] MEDS: Dexmedetomidine In 0.9 % NaCl 100 ML IV SCH (15:33)
[2024-04-21] MEDS: Morphine 4 MG/ML VIAL SLOW IVP SCH (16:39)
[2024-04-21] MEDS: Lorazepam 2 MG/ML VIAL ONE (16:40)
[2024-04-21] MEDS: Morphine 4 MG/ML VIAL ONE (16:41)
[2024-04-21] MEDS: fentaNYL 100 mcg/hour Patch TD SCH (16:44)
[2024-04-22] MEDS: Lorazepam 2 MG/ML VIAL ONE ×2 (02:00→19:55)
[2024-04-22] MEDS: Lorazepam 2 MG/ML VIAL SLOW IVP SCH ×3 (02:03→20:02)
[2024-04-22 04:26] LABS: #Basophils 0.03 10x3/uL (0.0-0.2); %Basophils 0.3 % (0.0-1.0); %Eosinophils 2.1 % (0.0-10.0); %Lymphocytes 12.1 % (21.0-51.0); %Monocytes 9.6 % (0.0-10.0); %Neutrophils 75.1 % (42.0-75.0); Hematocrit 30.9 % (42.0-52.0); Hemoglobin 9.9 g/dL (14.0-18.0); Mean Corpuscular Hemoglobin 28.5 pg (27.0-31.0); Mean Platelet Volume 10.3 fL (7.4-10.4); Platelet Count 175 10x3/uL (130-400); RBC Distribution Width 13.6 % (11.5-14.5); Red Blood Cell (RBC) Count 3.47 mill/uL (4.70-6.10)
[2024-04-22] MEDS: diphenhydrAMINE 50 MG/ML VIAL IVP SCH (20:06)
[2024-04-22] MEDS: Fentanyl CADD 100 ML IV SCH (21:48)
[2024-04-23 04:40] LABS: #Basophils 0.04 10x3/uL (0.0-0.2); #Eosinphils Less than 0.03 10x3/uL (0.0-0.7); %Basophils 0.2 % (0.0-1.0); %Lymphocytes 5.3 % (21.0-51.0); %Monocytes 10.5 % (0.0-10.0); %Neutrophils 83.4 % (42.0-75.0); Hematocrit 29.6 % (42.0-52.0); Hemoglobin 9.9 g/dL (14.0-18.0); Mean Corpuscular HGB CONC 33.4 g/dL (32.0-36.0); Mean Corpuscular Hemoglobin 29.3 pg (27.0-31.0); Mean Corpuscular Volume 87.6 fL (78.0-98.0); Mean Platelet Volume 10.9 fL (7.4-10.4); Platelet Count 195 10x3/uL (130-400); RBC Distribution Width 13.6 % (11.5-14.5); Red Blood Cell (RBC) Count 3.38 mill/uL (4.70-6.10)
[2024-04-23 05:03] LABS: Anion Gap 15 mmol/L (10-20); BUN (Urea Nitrogen) 13 mg/dL (8.9-20.6); Calc. Creatinine Clearance 133 mL/min (70-130); Calcium 8.8 mg/dL (7.8-10.44); Carbon Dioxide 25 mmol/L (22-29); Chloride 102 mmol/L (98-107); Estimated GFR 132; Glucose 111 mg/dL (70-105); Potassium 3.7 mmol/L (3.5-5.1); Sodium 138 mmol/L (136-145)
[2024-04-23] MEDS: Dexmedetomidine 1,000 MCG in Sodium Chloride 0.9% 250 ML 240 ML IVPB SCH (12:35)
[2024-04-23] MEDS: fentaNYL 75 mcg/hour Patch TD SCH (13:45)
[2024-04-24] MEDS: Lorazepam 2 MG/ML VIAL ONE ×3 (01:15→04:50)
[2024-04-24] MEDS: Adenosine 6 mg (2 mL) VIAL IVP SCH (01:23)
[2024-04-24] MEDS: Digoxin 0.5 MG/2 ML AMP SLOW IVP SCH (01:30)
[2024-04-24] MEDS: DILTIAZEM ONE (01:33)
[2024-04-24 02:02] LABS: #Basophils 0.04 10x3/uL (0.0-0.2); %Basophils 0.3 % (0.0-1.0); %Eosinophils 1.6 % (0.0-10.0); %Lymphocytes 32.3 % (21.0-51.0); %Monocytes 11.7 % (0.0-10.0); %Neutrophils 53.8 % (42.0-75.0); Hematocrit 27.8 % (42.0-52.0); Mean Corpuscular HGB CONC 32.4 g/dL (32.0-36.0); Mean Corpuscular Hemoglobin 28.5 pg (27.0-31.0); Mean Platelet Volume 10.4 fL (7.4-10.4); Platelet Count 311 10x3/uL (130-400); RBC Distribution Width 13.8 % (11.5-14.5); Red Blood Cell (RBC) Count 3.16 mill/uL (4.70-6.10)
[2024-04-24] MEDS: Amiodarone 450 MG, Admixture Fee 1 EACH in Dextrose 5% in Water 250 ML IVPB SCH (02:06)
[2024-04-24] MEDS: Amiodarone 150 MG, Admixture Fee 1 EACH in Dextrose 5% in Water 100 ML IVPB SCH (02:06)
[2024-04-24 02:15] LABS: Lactic Acid 1.6 mmol/L (0.5-2.2)
[2024-04-24 02:22] LABS: ALT (SGPT) 62 U/L (8-55); AST (SGOT) 37 U/L (5-34); Albumin 2.8 g/dL (3.5-5.0); Alkaline Phosphatase 113 U/L (40-110); Anion Gap 15 mmol/L (10-20); BUN (Urea Nitrogen) 15 mg/dL (8.9-20.6); Bilirubin, Total 0.4 mg/dL (0.2-1.2); CK (CPK) 166 U/L (30-200); Calc. Creatinine Clearance 132 mL/min (70-130); Calcium 8.5 mg/dL (7.8-10.44); Carbon Dioxide 22 mmol/L (22-29); Chloride 105 mmol/L (98-107); Estimated GFR 131; Globulin 3.6 g/dL (2.4-3.5); Glucose 108 mg/dL (70-105); Magnesium 1.9 mg/dL (1.6-2.6); Potassium 3.4 mmol/L (3.5-5.1); Protein, Total 6.4 g/dL (6.0-8.3); Sodium 139 mmol/L (136-145)
[2024-04-24 02:24] LABS: Troponin I Less than 0.010 ng/mL (< 0.028)
[2024-04-24] MEDS: Lorazepam 2 MG/ML VIAL SLOW IVP SCH (04:43)
[2024-04-24] MEDS: Digoxin 0.5 MG/2 ML AMP ONE (05:15)
[2024-04-24] MEDS: Adenosine 6 mg (2 mL) VIAL ONE (05:15)
[2024-04-24] MEDS: dilTIAZem 25 MG/5 ML VIAL SLOW IVP SCH (05:20)
[2024-04-24 08:11] LABS: Actual Bicarbonate (HCO3v) 26.4 mEq/L (22-28); Base Excess 1.4 mEq/L (-2.0 to +3.0); Calcium, Ionized (venous) 1.09 mmol/L (1.16-1.32); Chloride (VBG) 103 mmol/L (98-106); Hematocrit-VBG 32 % (42.0-52.0); Potassium (VBG) 3.45 mmol/L (3.70-5.30); Sodium 139 mmol/L (133-146); pH (venous) 7.404 (7.32-7.43)
[2024-04-24 08:27] LABS: Anion Gap 11 mmol/L (10-20); BUN (Urea Nitrogen) 12 mg/dL (8.9-20.6); Calc. Creatinine Clearance 136 mL/min (70-130); Calcium 8.6 mg/dL (7.8-10.44); Carbon Dioxide 24 mmol/L (22-29); Chloride 107 mmol/L (98-107); Estimated GFR 132; Glucose 101 mg/dL (70-105); Potassium 3.4 mmol/L (3.5-5.1); Sodium 139 mmol/L (136-145)
[2024-04-24 08:39] LABS: #Basophils 0.05 10x3/uL (0.0-0.2); %Basophils 0.3 % (0.0-1.0); %Eosinophils 0.5 % (0.0-10.0); %Lymphocytes 14.4 % (21.0-51.0); %Monocytes 10.7 % (0.0-10.0); %Neutrophils 73.6 % (42.0-75.0); Hematocrit 30.7 % (42.0-52.0); Hemoglobin 9.7 g/dL (14.0-18.0); Mean Corpuscular HGB CONC 31.6 g/dL (32.0-36.0); Mean Corpuscular Hemoglobin 28.3 pg (27.0-31.0); Mean Corpuscular Volume 89.5 fL (78.0-98.0); Mean Platelet Volume 10.7 fL (7.4-10.4); Platelet Count 229 10x3/uL (130-400); Red Blood Cell (RBC) Count 3.43 mill/uL (4.70-6.10)
[2024-04-24] MEDS: Potassium Chloride 20 MEQ in Premix 1 BAG IVPB SCH (09:45)
[2024-04-24] MEDS: Enoxaparin 30 MG (0.3 mL) SYRINGE SC SCH (10:39)
[2024-04-24 16:42] LABS: Potassium 3.7 mmol/L (3.5-5.1)
[2024-04-24] MEDS: Senokot S 8.6-50 MG TAB PER TUBE SCH (22:20)
[2024-04-24] MEDS: Gabapentin 300 MG CAP PER TUBE SCH (22:21)
[2024-04-24] MEDS: Baclofen 10 MG TAB PER TUBE SCH ×2 (22:21→22:44)
[2024-04-24] MEDS: Diazepam 5 MG TAB PER TUBE SCH (23:06)
[2024-04-25] MEDS: Lorazepam 2 MG/ML VIAL SLOW IVP SCH (00:39)
[2024-04-25 04:12] LABS: #Basophils 0.03 10x3/uL (0.0-0.2); %Basophils 0.2 % (0.0-1.0); %Eosinophils 2.1 % (0.0-10.0); %Lymphocytes 16.4 % (21.0-51.0); %Monocytes 10.2 % (0.0-10.0); %Neutrophils 70.8 % (42.0-75.0); Hematocrit 29.9 % (42.0-52.0); Hemoglobin 9.5 g/dL (14.0-18.0); Mean Corpuscular HGB CONC 31.8 g/dL (32.0-36.0); Mean Corpuscular Volume 91.2 fL (78.0-98.0); Mean Platelet Volume 9.8 fL (7.4-10.4); Platelet Count 315 10x3/uL (130-400); RBC Distribution Width 14.2 % (11.5-14.5); Red Blood Cell (RBC) Count 3.28 mill/uL (4.70-6.10)
[2024-04-25 04:34] LABS: Anion Gap 11 mmol/L (10-20); BUN (Urea Nitrogen) 12 mg/dL (8.9-20.6); Calc. Creatinine Clearance 159 mL/min (70-130); Calcium 8.7 mg/dL (7.8-10.44); Carbon Dioxide 29 mmol/L (22-29); Chloride 105 mmol/L (98-107); Estimated GFR 138; Glucose 87 mg/dL (70-105); Potassium 4.1 mmol/L (3.5-5.1); Sodium 141 mmol/L (136-145)
[2024-04-25] MEDS: Baclofen 10 MG TAB PER TUBE SCH (06:05)
[2024-04-25] MEDS ORDERED: Ventilator Sedation Protocol 1 EACH FS PRN (08:17)
[2024-04-25] MEDS ORDERED: Fentanyl BOLUS 250 ML IVPB PRN (08:45)
[2024-04-25] MEDS ORDERED: Propofol BOLUS 1,000 MG/100 ML VIAL IV PRN (08:45)
[2024-04-25] MEDS: risperiDONE 1 MG TAB PER TUBE SCH (08:59)
[2024-04-25] MEDS: DULoxetine 30 MG CAP PER TUBE SCH (08:59)
[2024-04-25] MEDS: Propofol 1,000 MG/100 ML VIAL IV PRN (09:01)
[2024-04-25] MEDS: Senokot S 8.6-50 MG TAB PER TUBE SCH (09:27)
[2024-04-25] MEDS: Gabapentin 300 MG CAP PER TUBE SCH (09:28)
[2024-04-26] MEDS: Morphine 2 MG/ML VIAL SLOW IVP PRN (04:05)
[2024-04-26] MEDS: Lorazepam 2 MG/ML VIAL SLOW IVP PRN (04:20)
[2024-04-26 04:33] LABS: #Basophils 0.03 10x3/uL (0.0-0.2); %Basophils 0.4 % (0.0-1.0); %Eosinophils 5.8 % (0.0-10.0); %Monocytes 9.3 % (0.0-10.0); %Neutrophils 68.2 % (42.0-75.0); Hemoglobin 9.1 g/dL (14.0-18.0); Mean Corpuscular HGB CONC 31.4 g/dL (32.0-36.0); Mean Corpuscular Hemoglobin 28.7 pg (27.0-31.0); Mean Corpuscular Volume 91.5 fL (78.0-98.0); Platelet Count 199 10x3/uL (130-400); RBC Distribution Width 14.6 % (11.5-14.5); Red Blood Cell (RBC) Count 3.17 mill/uL (4.70-6.10)
[2024-04-26 04:47] LABS: Anion Gap 8 mmol/L (10-20); BUN (Urea Nitrogen) 7 mg/dL (8.9-20.6); Calc. Creatinine Clearance 179 mL/min (70-130); Calcium 8.4 mg/dL (7.8-10.44); Carbon Dioxide 31 mmol/L (22-29); Chloride 106 mmol/L (98-107); Estimated GFR 143; Glucose 102 mg/dL (70-105); Potassium 3.4 mmol/L (3.5-5.1); Sodium 142 mmol/L (136-145)
[2024-04-26] MEDS: Amiodarone 200 MG TAB PO SCH ×2 (05:18→14:49)
[2024-04-26] MEDS: Potassium Chloride 20 MEQ in Premix 1 BAG IVPB SCH (05:18)
[2024-04-26] MEDS: Acetaminophen 650 MG/20.3 ML UDCUP PER TUBE PRN (11:52)
[2024-04-27 04:35] LABS: #Basophils Less than 0.03 10x3/uL (0.0-0.2); %Basophils 0.3 % (0.0-1.0); %Lymphocytes 21.8 % (21.0-51.0); %Monocytes 9.1 % (0.0-10.0); %Neutrophils 63.5 % (42.0-75.0); Hematocrit 27.6 % (42.0-52.0); Hemoglobin 8.7 g/dL (14.0-18.0); Mean Corpuscular HGB CONC 31.5 g/dL (32.0-36.0); Mean Corpuscular Hemoglobin 28.2 pg (27.0-31.0); Mean Corpuscular Volume 89.3 fL (78.0-98.0); Mean Platelet Volume 10.3 fL (7.4-10.4); Platelet Count 262 10x3/uL (130-400); RBC Distribution Width 14.8 % (11.5-14.5); Red Blood Cell (RBC) Count 3.09 mill/uL (4.70-6.10)
[2024-04-27 04:59] LABS: Anion Gap 8 mmol/L (10-20); BUN (Urea Nitrogen) 11 mg/dL (8.9-20.6); Calc. Creatinine Clearance 215 mL/min (70-130); Calcium 8.8 mg/dL (7.8-10.44); Carbon Dioxide 33 mmol/L (22-29); Chloride 107 mmol/L (98-107); Estimated GFR 137; Glucose 106 mg/dL (70-105); Potassium 3.6 mmol/L (3.5-5.1); Sodium 144 mmol/L (136-145)
[2024-04-27] MEDS: Glycopyrrolate 0.2 MG/ML 5 ML SYRINGE SLOW IVP SCH ×2 (12:53→18:48)
[2024-04-28 05:23] LABS: #Basophils 0.04 10x3/uL (0.0-0.2); %Basophils 0.8 % (0.0-1.0); %Eosinophils 5.4 % (0.0-10.0); %Lymphocytes 13.6 % (21.0-51.0); %Monocytes 7.8 % (0.0-10.0); %Neutrophils 72.2 % (42.0-75.0); Hematocrit 28.7 % (42.0-52.0); Mean Corpuscular HGB CONC 31.4 g/dL (32.0-36.0); Mean Corpuscular Hemoglobin 27.8 pg (27.0-31.0); Mean Corpuscular Volume 88.6 fL (78.0-98.0); Mean Platelet Volume 9.8 fL (7.4-10.4); Platelet Count 275 10x3/uL (130-400); RBC Distribution Width 14.3 % (11.5-14.5); Red Blood Cell (RBC) Count 3.24 mill/uL (4.70-6.10)
[2024-04-28 06:04] LABS: Anion Gap 10 mmol/L (10-20); BUN (Urea Nitrogen) 10 mg/dL (8.9-20.6); Calc. Creatinine Clearance 224 mL/min (70-130); Calcium 8.9 mg/dL (7.8-10.44); Carbon Dioxide 35 mmol/L (22-29); Chloride 103 mmol/L (98-107); Estimated GFR 139; Glucose 104 mg/dL (70-105); Potassium 3.6 mmol/L (3.5-5.1); Sodium 144 mmol/L (136-145)
[2024-04-28] MEDS: Enoxaparin 40 MG (0.4 mL) SYRINGE SC SCH (09:03)
[2024-04-28] MEDS: risperiDONE 1 MG TAB PER TUBE SCH (09:03)
[2024-04-28] MEDS: QUEtiapine 25 MG TAB PO SCH (14:18)
[2024-04-28] MEDS: QUEtiapine 25 MG TAB PER TUBE SCH (21:14)
[2024-04-28] MEDS: Metoprolol Tartrate 25 MG TAB PO SCH (21:15)
[2024-04-29 06:24] LABS: Anion Gap 14 mmol/L (10-20); BUN (Urea Nitrogen) 10 mg/dL (8.9-20.6); Calc. Creatinine Clearance 214 mL/min (70-130); Carbon Dioxide 28 mmol/L (22-29); Chloride 103 mmol/L (98-107); Estimated GFR 134; Glucose 102 mg/dL (70-105); Potassium 5.2 mmol/L (3.5-5.1); Sodium 140 mmol/L (136-145)
[2024-04-29 09:11] LABS: #Basophils 0.03 10x3/uL (0.0-0.2); %Basophils 0.4 % (0.0-1.0); %Eosinophils 4.8 % (0.0-10.0); %Lymphocytes 15.6 % (21.0-51.0); %Monocytes 8.8 % (0.0-10.0); %Neutrophils 70.1 % (42.0-75.0); Hematocrit 30.6 % (42.0-52.0); Hemoglobin 9.8 g/dL (14.0-18.0); Mean Corpuscular Hemoglobin 29.3 pg (27.0-31.0); Mean Corpuscular Volume 91.3 fL (78.0-98.0); Platelet Count 288 10x3/uL (130-400); RBC Distribution Width 14.4 % (11.5-14.5); Red Blood Cell (RBC) Count 3.35 mill/uL (4.70-6.10)
[2024-04-29 09:36] LABS: Platelet Adequacy Comment Platelets Normal; RBC Morphology Within Normal Limits
[2024-04-30 03:58] LABS: Anion Gap 12 mmol/L (10-20); BUN (Urea Nitrogen) 9 mg/dL (8.9-20.6); Calc. Creatinine Clearance 217 mL/min (70-130); Calcium 8.4 mg/dL (7.8-10.44); Carbon Dioxide 30 mmol/L (22-29); Chloride 102 mmol/L (98-107); Estimated GFR 136; Glucose 96 mg/dL (70-105); Potassium 3.9 mmol/L (3.5-5.1); Sodium 140 mmol/L (136-145)
[2024-04-30 04:20] LABS: Platelet Adequacy Comment Platelets Normal; Polychromasia SLIGHT = 2-3 cells HPF (0-2)
[2024-04-30 04:46] LABS: #Basophils Less than 0.03 10x3/uL (0.0-0.2); %Basophils 0.3 % (0.0-1.0); %Eosinophils 0.4 % (0.0-10.0); %Lymphocytes 7.2 % (21.0-51.0); %Monocytes 3.8 % (0.0-10.0); Hematocrit 32.5 % (42.0-52.0); Hemoglobin 10.2 g/dL (14.0-18.0); Mean Corpuscular HGB CONC 31.4 g/dL (32.0-36.0); Mean Corpuscular Volume 89.3 fL (78.0-98.0); Mean Platelet Volume 10.7 fL (7.4-10.4); Platelet Count 320 10x3/uL (130-400); Red Blood Cell (RBC) Count 3.64 mill/uL (4.70-6.10)
[2024-04-30] MEDS: Metoprolol Tartrate 5 MG (5 mL) VIAL IVP SCH (05:13)
[2024-04-30] MEDS: Ondansetron PF 4 MG/2 ML Vial IVP PRN (05:26)
[2024-05-01 05:37] LABS: #Basophils Less than 0.03 10x3/uL (0.0-0.2); %Basophils 0.6 % (0.0-1.0); %Eosinophils 2.9 % (0.0-10.0); %Lymphocytes 23.6 % (21.0-51.0); %Monocytes 14.4 % (0.0-10.0); %Neutrophils 57.5 % (42.0-75.0); Anion Gap 7 mmol/L (10-20); BUN (Urea Nitrogen) 14 mg/dL (8.9-20.6); Calc. Creatinine Clearance 201 mL/min (70-130); Calcium 8.6 mg/dL (7.8-10.44); Carbon Dioxide 33 mmol/L (22-29); Chloride 101 mmol/L (98-107); Estimated GFR 132; Glucose 105 mg/dL (70-105); Hematocrit 27.5 % (42.0-52.0); Hemoglobin 8.6 g/dL (14.0-18.0); Mean Corpuscular HGB CONC 31.3 g/dL (32.0-36.0); Mean Corpuscular Volume 89.6 fL (78.0-98.0); Mean Platelet Volume 10.5 fL (7.4-10.4); Platelet Count 235 10x3/uL (130-400); Potassium 3.8 mmol/L (3.5-5.1); RBC Distribution Width 14.4 % (11.5-14.5); Red Blood Cell (RBC) Count 3.07 mill/uL (4.70-6.10); Sodium 137 mmol/L (136-145)
[2024-05-02] MEDS ORDERED: Midazolam In 0.9 % NaCl/PF 100 ML IVPB SCH (01:45)
[2024-05-02 05:08] LABS: Hematocrit 29.8 % (42.0-52.0); Hemoglobin 9.1 g/dL (14.0-18.0); Mean Corpuscular HGB CONC 30.5 g/dL (32.0-36.0); Mean Corpuscular Hemoglobin 28.2 pg (27.0-31.0); Mean Corpuscular Volume 92.3 fL (78.0-98.0); Mean Platelet Volume 10.9 fL (7.4-10.4); Platelet Count 158 10x3/uL (130-400); RBC Distribution Width 14.6 % (11.5-14.5); Red Blood Cell (RBC) Count 3.23 mill/uL (4.70-6.10)
[2024-05-02 05:31] LABS: Anion Gap 10 mmol/L (10-20); BUN (Urea Nitrogen) 10 mg/dL (8.9-20.6); Calc. Creatinine Clearance 218 mL/min (70-130); Calcium 8.7 mg/dL (7.8-10.44); Carbon Dioxide 28 mmol/L (22-29); Chloride 100 mmol/L (98-107); Estimated GFR 135; Glucose 112 mg/dL (70-105); Sodium 134 mmol/L (136-145)
[2024-05-02 05:40] LABS: Band 39 % (5-11); Eosinophils 1 % (0-10); Lymphocytes 4 % (21-51); Metamyelocyte 1 % (0-0); Monocytes 4 % (0-10); Neutrophil 51 % (42-75); Platelet Adequacy Comment Platelets Normal; RBC Morphology Within Normal Limits
[2024-05-02] MEDS ORDERED: GASTROGRAFIN 30 ML BOT ONE (11:06)
[2024-05-03 04:53] LABS: Hematocrit 28.1 % (42.0-52.0); Hemoglobin 8.8 g/dL (14.0-18.0); Mean Corpuscular HGB CONC 31.3 g/dL (32.0-36.0); Mean Corpuscular Hemoglobin 27.7 pg (27.0-31.0); Mean Corpuscular Volume 88.4 fL (78.0-98.0); Mean Platelet Volume 10.3 fL (7.4-10.4); Platelet Count 186 10x3/uL (130-400); RBC Distribution Width 15.1 % (11.5-14.5); Red Blood Cell (RBC) Count 3.18 mill/uL (4.70-6.10)
[2024-05-03 04:54] LABS: Anion Gap 10 mmol/L (10-20); BUN (Urea Nitrogen) 13 mg/dL (8.9-20.6); Calc. Creatinine Clearance 226 mL/min (70-130); Calcium 8.9 mg/dL (7.8-10.44); Carbon Dioxide 30 mmol/L (22-29); Chloride 101 mmol/L (98-107); Estimated GFR 137; Glucose 147 mg/dL (70-105); Potassium 3.6 mmol/L (3.5-5.1); Sodium 137 mmol/L (136-145)
[2024-05-03 07:31] LABS: Band 57 % (5-11); Burr Cells SLIGHT = 2-5 cells HPF (0-1); Lymphocytes 5 % (21-51); Metamyelocyte 1 % (0-0); Monocytes 10 % (0-10); Neutrophil 27 % (42-75); Platelet Adequacy Comment Platelets Normal; Polychromasia SLIGHT = 2-3 cells HPF (0-2); Reflex for Review?? YES; Schistocytes SLIGHT = 2-5 cells HPF (0-1)
[2024-05-04 06:24] LABS: Hematocrit 27.7 % (42.0-52.0); Hemoglobin 8.8 g/dL (14.0-18.0); Mean Corpuscular HGB CONC 31.8 g/dL (32.0-36.0); Mean Corpuscular Hemoglobin 27.9 pg (27.0-31.0); Mean Corpuscular Volume 87.9 fL (78.0-98.0); Mean Platelet Volume 10.1 fL (7.4-10.4); Platelet Count 203 10x3/uL (130-400); RBC Distribution Width 15.3 % (11.5-14.5); Red Blood Cell (RBC) Count 3.15 mill/uL (4.70-6.10)
[2024-05-04 06:46] LABS: Band 39 % (5-11); Eosinophils 4 % (0-10); Lymphocytes 5 % (21-51); Metamyelocyte 2 % (0-0); Monocytes 6 % (0-10); Myelocyte 2 % (0-0); Neutrophil 40 % (42-75); Platelet Adequacy Comment Platelets Normal; Polychromasia SLIGHT = 2-3 cells HPF (0-2)
[2024-05-04 07:01] LABS: Anion Gap 14 mmol/L (10-20); BUN (Urea Nitrogen) 16 mg/dL (8.9-20.6); Calc. Creatinine Clearance 196 mL/min (70-130); Calcium 9.2 mg/dL (7.8-10.44); Carbon Dioxide 31 mmol/L (22-29); Chloride 98 mmol/L (98-107); Estimated GFR 130; Glucose 113 mg/dL (70-105); Potassium 3.7 mmol/L (3.5-5.1); Sodium 139 mmol/L (136-145)
[2024-05-04] MEDS: QUEtiapine 100 MG TAB PER TUBE SCH (11:00)
[2024-05-04] MEDS: Furosemide 40 MG (4 mL) VIAL SLOW IVP SCH (15:05)
[2024-05-04] MEDS: Meropenem 1 GM in Sodium Chloride 0.9% 100 ML IVPB SCH ×3 (15:05→21:22)
[2024-05-05 04:35] LABS: Hematocrit 24.2 % (42.0-52.0); Hemoglobin 7.6 g/dL (14.0-18.0); Mean Corpuscular HGB CONC 31.4 g/dL (32.0-36.0); Mean Corpuscular Volume 86.1 fL (78.0-98.0); Platelet Count 206 10x3/uL (130-400); RBC Distribution Width 15.5 % (11.5-14.5); Red Blood Cell (RBC) Count 2.81 mill/uL (4.70-6.10)
[2024-05-05 05:39] LABS: Anisocytosis SLIGHT = 6-15 cells HPF (0-5); Band 38 % (5-11); Eosinophils 1 % (0-10); Lymphocytes 8 % (21-51); Macrocytosis SLIGHT = 6-15 cells HPF (0-5); Metamyelocyte 1 % (0-0); Monocytes 7 % (0-10); Myelocyte 5 % (0-0); Neutrophil 41 % (42-75); Platelet Adequacy Comment Platelets Normal; Polychromasia SLIGHT = 2-3 cells HPF (0-2); Smudge Cells 8.9 %
[2024-05-05 06:37] LABS: Anion Gap 12 mmol/L (10-20); BUN (Urea Nitrogen) 16 mg/dL (8.9-20.6); Calc. Creatinine Clearance 196 mL/min (70-130); Carbon Dioxide 31 mmol/L (22-29); Chloride 100 mmol/L (98-107); Estimated GFR 130; Glucose 101 mg/dL (70-105); Potassium 3.1 mmol/L (3.5-5.1); Sodium 140 mmol/L (136-145)
[2024-05-05] MEDS: Potassium Chloride 20 MEQ in Premix 1 BAG IVPB SCH (07:45)
[2024-05-05] MEDS: Lansoprazole 30 MG/10 ML UDCUP PER TUBE SCH (10:15)
[2024-05-05 13:50] LABS: Potassium 3.6 mmol/L (3.5-5.1)
[2024-05-06 11:16] LABS: Hematocrit 25.2 % (42.0-52.0); Hemoglobin 7.8 g/dL (14.0-18.0); Mean Corpuscular Volume 87.2 fL (78.0-98.0); Mean Platelet Volume 11.7 fL (7.4-10.4); Platelet Count 135 10x3/uL (130-400); RBC Distribution Width 15.8 % (11.5-14.5); Red Blood Cell (RBC) Count 2.89 mill/uL (4.70-6.10)
[2024-05-06 11:33] LABS: Anion Gap 13 mmol/L (10-20); BUN (Urea Nitrogen) 15 mg/dL (8.9-20.6); Calc. Creatinine Clearance 214 mL/min (70-130); Calcium 8.8 mg/dL (7.8-10.44); Carbon Dioxide 31 mmol/L (22-29); Chloride 102 mmol/L (98-107); Estimated GFR 132; Glucose 103 mg/dL (70-105); Potassium 4.3 mmol/L (3.5-5.1); Sodium 142 mmol/L (136-145)
[2024-05-06 13:24] LABS: Band 37 % (5-11); Eosinophils 4 % (0-10); Lymphocytes 8 % (21-51); Metamyelocyte 4 % (0-0); Monocytes 11 % (0-10); Myelocyte 5 % (0-0); Neutrophil 30 % (42-75); Platelet Adequacy Comment Platelets Normal; Polychromasia SLIGHT = 2-3 cells HPF (0-2); Reactive Lymphocytes 1 % (0-10)
[2024-05-07] MEDS: Meropenem 1 GM VIAL ONE (06:00)
[2024-05-07 08:18] LABS: Anion Gap 11 mmol/L (10-20); BUN (Urea Nitrogen) 14 mg/dL (8.9-20.6); Calc. Creatinine Clearance 214 mL/min (70-130); Calcium 8.6 mg/dL (7.8-10.44); Carbon Dioxide 32 mmol/L (22-29); Chloride 102 mmol/L (98-107); Estimated GFR 132; Glucose 112 mg/dL (70-105); Potassium 4.1 mmol/L (3.5-5.1); Sodium 141 mmol/L (136-145)
[2024-05-07 08:26] LABS: Hemoglobin 8.3 g/dL (14.0-18.0); Mean Corpuscular HGB CONC 31.9 g/dL (32.0-36.0); Mean Corpuscular Hemoglobin 28.1 pg (27.0-31.0); Mean Corpuscular Volume 88.1 fL (78.0-98.0); Mean Platelet Volume 9.8 fL (7.4-10.4); Platelet Count 218 10x3/uL (130-400); RBC Distribution Width 15.6 % (11.5-14.5); Red Blood Cell (RBC) Count 2.95 mill/uL (4.70-6.10)
[2024-05-07 12:26] LABS: Band 10 % (5-11); Eosinophils 2 % (0-10); Lymphocytes 21 % (21-51); Metamyelocyte 2 % (0-0); Monocytes 3 % (0-10); Neutrophil 62 % (42-75); Plasma Cells 0 % (0-0); Platelet Adequacy Comment Appears Adequate; Total Cell Count 100
[2024-05-08 08:17] LABS: Platelet Count 263 10x3/uL (130-400)
[2024-05-08 08:20] LABS: Hematocrit 25.7 % (42.0-52.0); Hemoglobin 7.9 g/dL (14.0-18.0); Mean Corpuscular HGB CONC 30.7 g/dL (32.0-36.0); Mean Corpuscular Hemoglobin 26.6 pg (27.0-31.0); Mean Corpuscular Volume 86.5 fL (78.0-98.0); Mean Platelet Volume 9.8 fL (7.4-10.4); RBC Distribution Width 15.6 % (11.5-14.5); Red Blood Cell (RBC) Count 2.97 mill/uL (4.70-6.10)
[2024-05-08 08:32] LABS: Anion Gap 9 mmol/L (10-20); BUN (Urea Nitrogen) 14 mg/dL (8.9-20.6); Calc. Creatinine Clearance 221 mL/min (70-130); Calcium 8.5 mg/dL (7.8-10.44); Carbon Dioxide 33 mmol/L (22-29); Chloride 101 mmol/L (98-107); Estimated GFR 134; Glucose 118 mg/dL (70-105); Potassium 3.8 mmol/L (3.5-5.1); Sodium 139 mmol/L (136-145)
[2024-05-08 10:06] LABS: Band 5 % (5-11); Eosinophils 2 % (0-10); Hypochromia MODERATE=16-30 cells HPF (0-5); Lymphocytes 3 % (21-51); Monocytes 22 % (0-10); Neutrophil 68 % (42-75); Platelet Adequacy Comment Platelets Normal; Polychromasia SLIGHT = 2-3 cells HPF (0-2); Smudge Cells 19.6 %
[2024-05-08] MEDS: Folic Acid/Vit B Comp W-C PER TUBE SCH (20:33)
[2024-05-09 06:22] LABS: Hematocrit 27.7 % (42.0-52.0); Hemoglobin 8.7 g/dL (14.0-18.0); Mean Corpuscular HGB CONC 31.4 g/dL (32.0-36.0); Mean Corpuscular Hemoglobin 27.4 pg (27.0-31.0); Mean Corpuscular Volume 87.1 fL (78.0-98.0); Mean Platelet Volume 11.1 fL (7.4-10.4); Platelet Count 108 10x3/uL (130-400); RBC Distribution Width 15.2 % (11.5-14.5); Red Blood Cell (RBC) Count 3.18 mill/uL (4.70-6.10)
[2024-05-09 06:33] LABS: Anion Gap 10 mmol/L (10-20); BUN (Urea Nitrogen) 16 mg/dL (8.9-20.6); Calc. Creatinine Clearance 231 mL/min (70-130); Calcium 8.8 mg/dL (7.8-10.44); Carbon Dioxide 34 mmol/L (22-29); Chloride 99 mmol/L (98-107); Estimated GFR 136; Glucose 102 mg/dL (70-105); Magnesium 2.2 mg/dL (1.6-2.6); Potassium 4.6 mmol/L (3.5-5.1); Sodium 138 mmol/L (136-145)
[2024-05-09 06:41] LABS: Band 19 % (5-11); Eosinophils 4 % (0-10); Hypochromia SLIGHT = 6-15 cells HPF (0-5); Large Platelets 0.9 % (0-5); Lymphocytes 11 % (21-51); Metamyelocyte 4 % (0-0); Monocytes 5 % (0-10); Myelocyte 6 % (0-0); Neutrophil 51 % (42-75); Platelet Adequacy Comment Platelets Decreased; Polychromasia MODERATE = 3-4 cells HPF (0-2); Reactive Lymphocytes 1 % (0-10)
[2024-05-09] MEDS: risperiDONE 3 MG TAB PER TUBE SCH (07:46)
[2024-05-10 07:22] LABS: Anion Gap 11 mmol/L (10-20); BUN (Urea Nitrogen) 15 mg/dL (8.9-20.6); Calc. Creatinine Clearance 233 mL/min (70-130); Calcium 8.8 mg/dL (7.8-10.44); Carbon Dioxide 34 mmol/L (22-29); Chloride 101 mmol/L (98-107); Estimated GFR 137; Glucose 108 mg/dL (70-105); Potassium 3.9 mmol/L (3.5-5.1); Sodium 142 mmol/L (136-145)
[2024-05-10 07:38] LABS: Hematocrit 28.3 % (42.0-52.0); Hemoglobin 8.9 g/dL (14.0-18.0); Mean Corpuscular HGB CONC 31.4 g/dL (32.0-36.0); Mean Corpuscular Hemoglobin 27.2 pg (27.0-31.0); Mean Corpuscular Volume 86.5 fL (78.0-98.0); Mean Platelet Volume 9.6 fL (7.4-10.4); Platelet Count 199 10x3/uL (130-400); Red Blood Cell (RBC) Count 3.27 mill/uL (4.70-6.10)
[2024-05-10 08:27] LABS: Band 10 % (5-11); Eosinophils 2 % (0-10); Lymphocytes 10 % (21-51); Metamyelocyte 3 % (0-0); Monocytes 7 % (0-10); Neutrophil 68 % (42-75); Platelet Adequacy Comment Platelets Normal; Polychromasia SLIGHT = 2-3 cells HPF (0-2); Schistocytes SLIGHT = 2-5 cells HPF (0-1)
[2024-05-11 03:15] VITALS: BP 118/83
[2024-05-11 07:32] LABS: #Basophils 0.06 10x3/uL (0.0-0.2); %Basophils 0.3 % (0.0-1.0); %Eosinophils 1.1 % (0.0-10.0); %Lymphocytes 7.6 % (21.0-51.0); %Monocytes 7.3 % (0.0-10.0); %Neutrophils 80.8 % (42.0-75.0); Hematocrit 26.7 % (42.0-52.0); Hemoglobin 8.6 g/dL (14.0-18.0); Mean Corpuscular HGB CONC 32.2 g/dL (32.0-36.0); Mean Corpuscular Hemoglobin 27.4 pg (27.0-31.0); Mean Platelet Volume 10.3 fL (7.4-10.4); Platelet Count 218 10x3/uL (130-400); RBC Distribution Width 15.5 % (11.5-14.5); Red Blood Cell (RBC) Count 3.14 mill/uL (4.70-6.10)
[2024-05-11 07:46] LABS: Anion Gap 9 mmol/L (10-20); BUN (Urea Nitrogen) 16 mg/dL (8.9-20.6); Calc. Creatinine Clearance 173 mL/min (70-130); Calcium 8.7 mg/dL (7.8-10.44); Carbon Dioxide 35 mmol/L (22-29); Chloride 96 mmol/L (98-107); Estimated GFR 129; Glucose 111 mg/dL (70-105); Potassium 4.2 mmol/L (3.5-5.1); Sodium 136 mmol/L (136-145)
[2024-05-12 06:59] LABS: #Basophils 0.06 10x3/uL (0.0-0.2); %Basophils 0.4 % (0.0-1.0); %Eosinophils 2.4 % (0.0-10.0); %Lymphocytes 17.9 % (21.0-51.0); %Monocytes 9.2 % (0.0-10.0); %Neutrophils 68.5 % (42.0-75.0); Hematocrit 31.3 % (42.0-52.0); Hemoglobin 9.9 g/dL (14.0-18.0); Mean Corpuscular HGB CONC 31.6 g/dL (32.0-36.0); Mean Corpuscular Volume 85.5 fL (78.0-98.0); Mean Platelet Volume 9.9 fL (7.4-10.4); Platelet Count 126 10x3/uL (130-400); RBC Distribution Width 15.6 % (11.5-14.5); Red Blood Cell (RBC) Count 3.66 mill/uL (4.70-6.10)
[2024-05-12 07:25] LABS: Anion Gap 12 mmol/L (10-20); BUN (Urea Nitrogen) 22 mg/dL (8.9-20.6); Calc. Creatinine Clearance 191 mL/min (70-130); Calcium 8.8 mg/dL (7.8-10.44); Carbon Dioxide 29 mmol/L (22-29); Chloride 98 mmol/L (98-107); Estimated GFR 134; Glucose 107 mg/dL (70-105); Magnesium 2.3 mg/dL (1.6-2.6); Potassium 4.5 mmol/L (3.5-5.1); Sodium 134 mmol/L (136-145)
[2024-05-12 09:52] VITALS: BMI 21.7
[2024-05-12] MEDS ORDERED: GASTROGRAFIN 30 ML BOT ONE (11:19)
[2024-05-12] MEDS ORDERED: Amiodarone 450 MG in Dextrose 5% in Water 250 ML IVPB SCH (14:45)
[2024-05-12] MEDS: DILTIAZEM ONE ×2 (15:00→15:11)
[2024-05-12] MEDS: dilTIAZem 25 MG/5 ML VIAL SLOW IVP SCH (15:12)
[2024-05-12] MEDS: Diltiazem HCl/D5W 125 MG in Premix 1 BAG IVPB SCH (15:33)
[2024-05-12] MEDS: Digoxin 0.5 MG/2 ML AMP SLOW IVP SCH (19:48)
[2024-05-12] MEDS: Digoxin 0.5 MG/2 ML AMP ONE (19:56)
[2024-05-13 01:18] VITALS: TEMP 103
== END 2024-05-13 01:41 | disposition short-term general hospital (02) | DRG 4 ==
LOC: ERS 04:31 → CCU 05:37
PROVIDERS: ADMIT Internal Medicine; ATTEND Internal Medicine
PROC: 4A133R1 Monitoring of Arterial Saturation, Peripheral, Percutaneous Approach (ICD-10-PCS; principal; 2024-04-08)
PROC: 5A1955Z Respiratory Ventilation, Greater than 96 Consecutive Hours (ICD-10-PCS; 2024-04-08)
PROC: 3E03329 Introduction of Other Anti-infective into Peripheral Vein, Percutaneous Approach (ICD-10-PCS; 2024-04-08)
PROC: 0BH17EZ Insertion of Endotracheal Airway into Trachea, Via Natural or Artificial Opening (ICD-10-PCS; 2024-04-08)
PROC: 30233J1 Transfusion of Nonautologous Serum Albumin into Peripheral Vein, Percutaneous Approach (ICD-10-PCS; 2024-04-09)
PROC: 5A0935A Assistance with Respiratory Ventilation, Less than 24 Consecutive Hours, High Flow/Velocity Cannula (ICD-10-PCS; 2024-04-13)
PROC: 0B110F4 Bypass Trachea to Cutaneous with Tracheostomy Device, Open Approach (ICD-10-PCS; 2024-04-20)
DX: A41.9 Sepsis, unspecified organism (principal); J18.9 Pneumonia, unspecified organism; J96.01 Acute respiratory failure with hypoxia; J69.0 Pneumonitis due to inhalation of food and vomit; G10 Huntington's disease; T85.528A Displacement of other gastrointestinal prosthetic devices, implants and grafts, initial encounter; E87.0 Hyperosmolality and hypernatremia; E87.1 Hypo-osmolality and hyponatremia; E78.5 Hyperlipidemia, unspecified; Z79.899 Other long term (current) drug therapy; I69.391 Dysphagia following cerebral infarction; Z98.890 Other specified postprocedural states; Z74.01 Bed confinement status; Z79.891 Long term (current) use of opiate analgesic; Z79.82 Long term (current) use of aspirin
CPT/HCPCS: 31500; 36415; 36416; 36600; 43753; 49451; 71045; 74018; 76705; 80048; 80053; 80202; 81001; 82550; 82805; 83605; 83735; 83880; 84100; 84145; 84146; 84443; 84478; 84484; 85025; 85060; 87040; 87070; 87077; 87081; 87086; 87149; 87186; 87205; 93005; 93010; 93306; 93970; 94002; 94003; 94640; 96365; 96366; 96368; 96375; 97139; C1769; C9113; J0153; J0171; J0282; J0665; J0690; J0692; J1160; J1200; J1450; J1630; J1650; J1940; J1956; J2060; J2185; J2250; J2270; J2272; J2405; J2543; J2704; J2920; J3010; J3370; J3480; J3490; J7030; J7050; J7070; J7120; J7620; P9047; Q9963; S0028